=== PATIENT | female | born 1965 | race Caucasian/White ===

== ENCOUNTER → 2021-11-20 | Day surgery (SDC) | payer OTHER ==
[~2021-11-20] MED LIST: Flumazenil 0.1 MG/ML 10 ML MDV ONE; Ketamine 200 MG/20 ML MDV ONE; Lactated Ringers 1,000 ML IV SCH; Midazolam 1 MG/ML 2 ML SDV ONE; Propofol 200 MG/20 ML SDV ONE; fentaNYL 100 MCG/2 ML SDV ONE
== END ==
LOC: CC.SDS 10:07
PROVIDERS: ATTEND Family Medicine
DX: Z12.11 Encounter for screening for malignant neoplasm of colon (principal); K57.30 Diverticulosis of large intestine without perforation or abscess without bleeding; K52.89 Other specified noninfective gastroenteritis and colitis; E78.1 Pure hyperglyceridemia; Z88.1 Allergy status to other antibiotic agents
CPT/HCPCS: 00812; J2250; J2704; J3010; J7120